=== PATIENT | male | born 1950 | race Caucasian/White ===

== ENCOUNTER 2016-02-21 10:15 | Outpatient (CLI) | payer MEDICARE, OTHER | END 2016-02-21 10:16 | disposition home or self-care (01) | DX: E55.9 Vitamin D deficiency, unspecified (principal); R73.09 Other abnormal glucose; Z79.899 Other long term (current) drug therapy ==

== ENCOUNTER 2016-10-03 08:11 | Outpatient (CLI) | payer MEDICARE, OTHER ==
[2016-10-03 08:48] LABS: ALBUMIN/GLOBULIN RATIO 1.3 (1.0-2.2); BUN - BLOOD UREA NITROGEN 13 mg/dL (6-20); CALCIUM 9.1 mg/dL (8.5-10.3); CARBON DIOXIDE - CO2 23 mmol/L (21-32); CHLORIDE 108 mmol/L (101-111); CHOL/HDL RATIO 4.4 (<5.0); CHOLESTEROL 160 mg/dL; GFR - MDRD 74 (>89); GLUCOSE 179 mg/dL (70-100); HDL CHOLESTEROL 36 mg/dL; POTASSIUM 4.2 mmol/L (3.5-5.0); SODIUM 138 mmol/L (135-145); TOTAL PROTEIN 6.9 g/dL (6.7-8.2); TRIGLYCERIDES 256 mg/dL; VLDL CHOLESTEROL 51 mg/dL
[2016-10-03 08:50] LABS: BASOPHILS # (AUTO) 0.1 10^3/uL (0.0-0.1); BASOPHILS % (AUTO) 0.9 %; EOSINOPHILS # (AUTO) 0.1 10^3/uL (0.0-0.7); EOSINOPHILS % (AUTO) 1.7 %; HCT - HEMATOCRIT 42.3 % (42.0-52.0); HGB - HEMOGLOBIN 14.8 g/dL (14.0-18.0); LYMPHOCYTES # (AUTO) 2.5 10^3/uL (1.5-3.5); LYMPHOCYTES % (AUTO) 41.4 %; MEAN CORPUSCULAR HEMOGLOBIN 32.2 pg (27.0-31.0); MEAN CORPUSCULAR HGB CONC 35.1 g/dL (32.0-36.0); MEAN CORPUSCULAR VOLUME 91.8 fL (80.0-94.0); MEAN PLATELET VOLUME 8.4 fL (7.4-11.4); MONOCYTES # (AUTO) 0.4 10^3/uL (0.0-1.0); MONOCYTES % (AUTO) 7.2 %; NEUTROPHILS % (AUTO) 48.8 %; NUCLEATED RED BLOOD CELLS AUTO 0.1 /100WBC; RED BLOOD COUNT 4.61 10^6/uL (4.70-6.10); RED CELL DISTRIBUTION WIDTH 12.9 % (12.0-15.0); UNCORRECTED WHITE BLOOD COUNT 6.1 x10^3/uL; WHITE BLOOD COUNT 6.1 x10^3/uL (4.8-10.8)
[2016-10-03 08:58] LABS: HEMOGLOBIN A1C 1.03 g/dL
== END 2016-10-03 08:12 | disposition home or self-care (01) ==
LOC: LAB 08:11
PROVIDERS: ATTEND Internal Medicine
DX: E55.9 Vitamin D deficiency, unspecified (principal); E88.81 Metabolic syndrome and other insulin resistance; E78.5 Hyperlipidemia, unspecified; Z79.899 Other long term (current) drug therapy
CPT/HCPCS: 36415; 80053; 80061; 82306; 83036; 85025

== ENCOUNTER 2016-12-18 09:37 | Outpatient (CLI) | payer MEDICARE, OTHER ==
[2016-12-18 10:35] LABS: HEMOGLOBIN A1C 0.82 g/dL
== END 2016-12-18 09:38 | disposition home or self-care (01) ==
LOC: LAB 09:37
PROVIDERS: ATTEND Internal Medicine
DX: E11.9 Type 2 diabetes mellitus without complications (principal)
CPT/HCPCS: 36415; 83036

== ENCOUNTER 2017-01-22 09:44 | Outpatient (CLI) | payer MEDICARE, OTHER | END 2017-01-22 09:45 | disposition home or self-care (01) | LOC: SC 09:44 | PROVIDERS: ATTEND Nurse Practitioner Family | DX: G47.33 Obstructive sleep apnea (adult) (pediatric) (principal); G47.00 Insomnia, unspecified | CPT/HCPCS: 99214; G0463; 99212 ==

== ENCOUNTER 2017-03-24 10:12 | Outpatient (CLI) | payer MEDICARE, OTHER | END 2017-03-24 10:13 | disposition home or self-care (01) | LOC: SC 10:12 | PROVIDERS: ATTEND Nurse Practitioner Family | DX: G47.33 Obstructive sleep apnea (adult) (pediatric) (principal) | CPT/HCPCS: 99214; G0463; 99212 ==

== ENCOUNTER 2017-04-02 10:12 | Outpatient (CLI) | payer MEDICARE, OTHER ==
[2017-04-02 11:10] LABS: HB2 TOTAL 16.3 g/dL; HEMOGLOBIN A1C 0.91 g/dL; HEMOGLOBIN A1C % 7.3 % (4.6-6.2)
== END 2017-04-02 10:13 | disposition home or self-care (01) ==
LOC: LAB 10:12
PROVIDERS: ATTEND Internal Medicine
DX: E11.9 Type 2 diabetes mellitus without complications (principal)
CPT/HCPCS: 36415; 83036

== ENCOUNTER 2017-04-20 08:55 | Outpatient (CLI) | payer MEDICARE, OTHER | END 2017-04-20 08:56 | disposition home or self-care (01) | LOC: SC 08:55 | PROVIDERS: ATTEND Nurse Practitioner Family | DX: G47.33 Obstructive sleep apnea (adult) (pediatric) (principal) | CPT/HCPCS: 99214; G0463; 99212 ==

== ENCOUNTER 2017-11-10 07:47 | Outpatient (CLI) | payer MEDICARE, OTHER ==
[2017-11-10 08:29] LABS: BASOPHILS % (AUTO) 0.8 %; EOSINOPHILS # (AUTO) 0.2 10^3/uL (0.0-0.7); EOSINOPHILS % (AUTO) 2.7 %; HGB - HEMOGLOBIN 15.2 g/dL (14.0-18.0); LYMPHOCYTES # (AUTO) 2.6 10^3/uL (1.5-3.5); LYMPHOCYTES % (AUTO) 41.5 %; MEAN CORPUSCULAR HEMOGLOBIN 32.9 pg (27.0-31.0); MEAN CORPUSCULAR HGB CONC 35.1 g/dL (32.0-36.0); MEAN CORPUSCULAR VOLUME 93.8 fL (80.0-94.0); MEAN PLATELET VOLUME 8.3 fL (7.4-11.4); MONOCYTES # (AUTO) 0.5 10^3/uL (0.0-1.0); MONOCYTES % (AUTO) 7.4 %; NEUTROPHILS % (AUTO) 47.6 %; PLT - PLATELET COUNT 180 10^3/uL (130-450); RED BLOOD COUNT 4.62 10^6/uL (4.70-6.10); RED CELL DISTRIBUTION WIDTH 12.7 % (12.0-15.0); WHITE BLOOD COUNT 6.3 x10^3/uL (4.8-10.8)
[2017-11-10 08:31] LABS: ALBUMIN/GLOBULIN RATIO 1.3 (1.0-2.2); ALKALINE PHOSPHATASE 75 IU/L (42-121); ALT ALANINE AMINOTRANSFERASE 33 IU/L (10-60); AST ASPARTATE AMINOTRANSFERASE 26 IU/L (10-42); BILIRUBIN,TOTAL 0.9 mg/dL (0.2-1.0); BUN - BLOOD UREA NITROGEN 14 mg/dL (6-20); CALCIUM 9.4 mg/dL (8.5-10.3); CARBON DIOXIDE - CO2 24 mmol/L (21-32); CHLORIDE 105 mmol/L (101-111); CHOL/HDL RATIO 4.2 (<5.0); CHOLESTEROL 146 mg/dL; CREATININE 0.9 mg/dL (0.6-1.2); GFR - MDRD 84 (>89); GLUCOSE 172 mg/dL (70-100); HDL CHOLESTEROL 35 mg/dL; LDL CHOLESTEROL,CALCULATED 66 mg/dL; LDL/HDL RATIO 1.9 (<3.6); SODIUM 139 mmol/L (135-145); TOTAL PROTEIN 7.2 g/dL (6.7-8.2); VLDL CHOLESTEROL 45 mg/dL
[2017-11-10 09:03] LABS: HB2 TOTAL 17.3 g/dL; HEMOGLOBIN A1C 1.1 g/dL
== END 2017-11-10 07:48 | disposition home or self-care (01) ==
LOC: LAB 07:47
PROVIDERS: ATTEND Internal Medicine
DX: E11.9 Type 2 diabetes mellitus without complications (principal); G47.62 Sleep related leg cramps; Z12.5 Encounter for screening for malignant neoplasm of prostate; E55.9 Vitamin D deficiency, unspecified; E78.5 Hyperlipidemia, unspecified; K30 Functional dyspepsia
CPT/HCPCS: 36415; 80053; 80061; 82306; 83036; 84443; 85025; G0103; 83721; 84153

== ENCOUNTER 2017-12-16 15:53 | Outpatient (CLI) | payer MEDICARE, OTHER | END 2017-12-16 15:54 | disposition home or self-care (01) | LOC: SC 15:53 | PROVIDERS: ATTEND Nurse Practitioner Family | DX: G47.33 Obstructive sleep apnea (adult) (pediatric) (principal) | CPT/HCPCS: 99214; G0463; 99212 ==

== ENCOUNTER 2018-02-22 08:19 | Outpatient (CLI) | payer MEDICARE, OTHER | END 2018-02-22 08:20 | disposition home or self-care (01) | LOC: SC 08:19 | PROVIDERS: ATTEND Nurse Practitioner Family | DX: G47.33 Obstructive sleep apnea (adult) (pediatric) (principal) | CPT/HCPCS: 99214; G0463; 99212 ==

== ENCOUNTER 2018-03-03 08:23 | Outpatient (CLI) | payer MEDICARE, OTHER ==
[2018-03-03 09:49] LABS: HEMOGLOBIN A1C 0.81 g/dL; HEMOGLOBIN A1C % 6.5 % (4.6-6.2)
== END 2018-03-03 08:24 | disposition home or self-care (01) ==
LOC: LAB 08:23
PROVIDERS: ATTEND Internal Medicine
DX: E11.9 Type 2 diabetes mellitus without complications (principal)
CPT/HCPCS: 36415; 83036

== ENCOUNTER 2018-09-29 10:55 | Outpatient (CLI) | payer MEDICARE, OTHER ==
[2018-09-29 11:26] LABS: BUN - BLOOD UREA NITROGEN 15 mg/dL (6-20); CALCIUM 8.9 mg/dL (8.5-10.3); CARBON DIOXIDE - CO2 21 mmol/L (21-32); CHLORIDE 103 mmol/L (101-111); CHOL/HDL RATIO 4.4 (<5.0); CHOLESTEROL 148 mg/dL; GFR - MDRD 74 (>89); GLUCOSE 191 mg/dL (70-100); HDL CHOLESTEROL 34 mg/dL; LDL CHOLESTEROL,CALCULATED 66 mg/dL; LDL/HDL RATIO 1.9 (<3.6); SODIUM 136 mmol/L (135-145); VLDL CHOLESTEROL 48 mg/dL
[2018-09-29 11:30] LABS: HB2 TOTAL 16.4 g/dL; HEMOGLOBIN A1C 1.06 g/dL; HEMOGLOBIN A1C % 8.1 % (4.6-6.2)
== END 2018-09-29 10:56 | disposition home or self-care (01) ==
LOC: LAB 10:55
PROVIDERS: ATTEND Family Medicine
DX: E11.9 Type 2 diabetes mellitus without complications (principal); E66.9 Obesity, unspecified; E55.9 Vitamin D deficiency, unspecified
CPT/HCPCS: 36415; 80048; 80061; 82306; 83036; 83721

== ENCOUNTER 2018-12-31 09:24 | Outpatient (CLI) | payer MEDICARE, OTHER ==
[2018-12-31 10:23] LABS: CALCIUM 9.3 mg/dL (8.5-10.3); CREATININE 0.9 mg/dL (0.6-1.2)
[2018-12-31 10:51] LABS: HB2 TOTAL 15.2 g/dL; HEMOGLOBIN A1C 1.05 g/dL; HEMOGLOBIN A1C % 8.5 % (4.6-6.2)
== END 2018-12-31 09:25 | disposition home or self-care (01) ==
LOC: LAB 09:24
PROVIDERS: ATTEND Family Medicine
DX: G47.30 Sleep apnea, unspecified (principal); E11.9 Type 2 diabetes mellitus without complications; E66.9 Obesity, unspecified; E55.9 Vitamin D deficiency, unspecified
CPT/HCPCS: 36415; 80048; 82306; 83036

== ENCOUNTER 2019-02-28 10:20 | Outpatient (CLI) | payer MEDICARE, OTHER ==
[2019-02-28 11:10] VITALS: BP 134/80
--- NOTE | 2019-02-28 11:10 | SLEEP CARE CONSULTATION ---
Information from patient questionnaire entered by Sheryl Collins. I have reviewed and concur with the information entered by Sheryl Collins. This document represents the service I personally performed and the decisions made by me, Lisa Granados, RN, MSN, [employer]. History of Present Illness Previous diagnosis: Severe, Obstructive Sleep Apnea-Hypopnea Syndrome AHI: 30.1 Reason for follow up: annual (last seen 2019) Equipment type: CPAP Equipment obtained from: [facility] (having difficulty getting supplies until 3 weeks ago and considering transferring) Mask style: Nasal pillows Mask brand: Resmed Backup mask available: Yes Last cushion change: a month HPI additional information: Sleep has been less disrupted since start of time release melatonin 3mg. CPAP Compliance Data - Data Reviewed with Patient Average duration of nightly device use: 7.7 Compliance rate %: 81.1 (180 days ) Current pressure setting (cmH2O): 9-12 Humidity settin Heated hose settin Average residual AHI: 3.9 Average large leak: 2 min 54 sec Subjective Patient concerns: reports: nasal congestion (last several months, nagging morning headache same amount of time), dry mouth, nose, throat (wakes with reservoir empty). denies: aerophagia Initial [place] Sleepiness Scale score: 4 Current [place] Sleepiness Scale score: 6 Physical Exam Blood Pressure: 134/80 Cuff size: long Heart Rate: 67 O2 Saturation: 98 Height: 6 ft 2 in Weight: 308 lb 3.2 oz Weight change since last visit: LOST 3 POUNDS Body Mass Index: 39.5 BMI Classification: Obesity Class 2 Impression and Plan 1. Obstructive Sleep Apnea-Hypopnea Syndrome, moderat to severe on HST in 2018 , with good treatment compliance and good apnea control. On CPAP therapy, the patient has better sleep quality and is more rested overall. His sleep disruption has been reduced with use of melatonin. To furhter improve sleep at night, I explained the importance of not napping and having regular exercise daily. The amount of exercise to be guided by his PCP. Patient has had a nagging mild headache in morning the last few months and that same time he has had the nasal congestion. He is advised to follow up with his PCP for further evaluation. Until then to reduce nasal congestion , I advised increasing the CPAP humidity as shown on sample device and reducing heated hose. This will also allow more moisture delivery. The lower heated hose may also allow water to last longer. If further problems with running out of water, he can have the humidifier checked for malfunction. Printed instructions given how to change settings and why. The heated hose can be adjusted higher if condensation with higher humidity setting. Saline nasal spray sample was also given to use prior to CPAP to clear nasal secretions and wash off any nasal allergens to facilitate nasal breathing. In addition, a steamy shower before bed will often assist nasal drainage. For patient supply concerns. Patient was notified that another DME can be used. I will have my borough coordinator inform of DME options. A [facility] prescription will then be made if patient chooses to transfer. He will consider. Patient advised to contact this office if further supply problems. Patient's apnea severity and rationale for treatment to reduce apnea, improve sleep quality and reduce cardiovascular and cerebrovascular events was reviewed. I also reviewed the benefit of consistent device use of CPAP for diabetes. I reviewed his current BMI of obesity and health risks associated with obesity. He was reminded of the importance of weight loss to reduce his apnea risk , CPAP pressure and benefit to his diabetes. He is to consider to lose weight and discuss with PCP. Keeping physically active will reduce some of health risks of obesity. * Continue CPAP pressure at 9-12 cmH2O * Implement methods to reduce nasal congestion. * Follow up with PCP re headache, nasal congestion, weight loss and activity guidelines. * Notify me if snoring with mask or feeling that the pressure is too much or too little * Attempt to lose weight * Call this office if any problems using CPAP * Return for follow up in 1 year , or sooner if concerns arise Time Spent with Patient (minutes): 35 I spent 100% of this visit face to face with the patient with greater than 50% of this was spent time counseling the patient and coordination of care.
== END 2019-02-28 10:21 | disposition home or self-care (01) ==
LOC: SC 10:20
PROVIDERS: ATTEND Nurse Practitioner Family
DX: G47.33 Obstructive sleep apnea (adult) (pediatric) (principal); E66.9 Obesity, unspecified; Z68.39 Body mass index [BMI] 39.0-39.9, adult
CPT/HCPCS: 99214; G0463; 99212

== ENCOUNTER 2019-07-05 08:29 | Outpatient (CLI) | payer MEDICARE, OTHER ==
[2019-07-05 08:54] LABS: BASOPHILS % (AUTO) 0.3 %; EOSINOPHILS # (AUTO) 0.1 10^3/uL (0.0-0.7); EOSINOPHILS % (AUTO) 1.7 %; HGB - HEMOGLOBIN 15.2 g/dL (14.0-18.0); LYMPHOCYTES # (AUTO) 2.3 10^3/uL (1.5-3.5); LYMPHOCYTES % (AUTO) 39.6 %; MEAN CORPUSCULAR HEMOGLOBIN 33.4 pg (27.0-31.0); MEAN CORPUSCULAR HGB CONC 34.9 g/dL (32.0-36.0); MEAN CORPUSCULAR VOLUME 95.6 fL (80.0-94.0); MONOCYTES # (AUTO) 0.5 10^3/uL (0.0-1.0); MONOCYTES % (AUTO) 8.4 %; NEUTROPHILS # (AUTO) 2.8 10^3/uL (1.5-6.6); NEUTROPHILS % (AUTO) 49.7 %; PLT - PLATELET COUNT 162 10^3/uL (130-450); RED BLOOD COUNT 4.55 10^6/uL (4.70-6.10); RED CELL DISTRIBUTION WIDTH 12.3 % (12.0-15.0); WHITE BLOOD COUNT 5.7 x10^3/uL (4.8-10.8)
[2019-07-05 09:12] LABS: ALBUMIN 3.9 g/dL (3.2-5.5); ALBUMIN/GLOBULIN RATIO 1.3 (1.0-2.2); ALKALINE PHOSPHATASE 77 IU/L (42-121); ALT ALANINE AMINOTRANSFERASE 54 IU/L (10-60); AST ASPARTATE AMINOTRANSFERASE 37 IU/L (10-42); BILIRUBIN,TOTAL 0.6 mg/dL (0.2-1.0); BUN - BLOOD UREA NITROGEN 17 mg/dL (6-20); CARBON DIOXIDE - CO2 19 mmol/L (21-32); CHLORIDE 106 mmol/L (101-111); CHOL/HDL RATIO 3.7 (<5.0); CHOLESTEROL 139 mg/dL; GLUCOSE 180 mg/dL (70-100); HDL CHOLESTEROL 38 mg/dL; LDL CHOLESTEROL,CALCULATED 44 mg/dL; LDL/HDL RATIO 1.2 (<3.6); SODIUM 137 mmol/L (135-145); VLDL CHOLESTEROL 57 mg/dL
== END 2019-07-05 08:30 | disposition home or self-care (01) ==
LOC: LAB 08:29
PROVIDERS: ATTEND Family Medicine
DX: E11.65 Type 2 diabetes mellitus with hyperglycemia (principal); G47.30 Sleep apnea, unspecified; K21.9 Gastro-esophageal reflux disease without esophagitis; E55.9 Vitamin D deficiency, unspecified; E78.5 Hyperlipidemia, unspecified; G47.33 Obstructive sleep apnea (adult) (pediatric)
CPT/HCPCS: 36415; 80053; 80061; 82306; 83721; 84153; 84443; 85025

== ENCOUNTER 2019-07-08 11:11 | Outpatient (CLI) | payer MEDICARE, OTHER ==
[2019-07-08 11:47] LABS: HB2 TOTAL 15.3 g/dL; HEMOGLOBIN A1C 0.84 g/dL; HEMOGLOBIN A1C % 7.2 % (4.6-6.2)
== END 2019-07-08 11:12 | disposition home or self-care (01) ==
LOC: LAB 11:11
PROVIDERS: ATTEND Family Medicine
DX: E11.65 Type 2 diabetes mellitus with hyperglycemia (principal)
CPT/HCPCS: 36415; 83036

== ENCOUNTER 2019-11-17 10:56 | Outpatient (CLI) | payer MEDICARE, OTHER | END 2019-11-17 10:57 | disposition home or self-care (01) | LOC: LAB 10:56 | PROVIDERS: ATTEND Family Medicine | DX: M46.96 Unspecified inflammatory spondylopathy, lumbar region (principal); G62.9 Polyneuropathy, unspecified | CPT/HCPCS: 36415; 80048 ==

== ENCOUNTER 2019-12-23 07:46 | Day surgery (SDC) | payer MEDICARE, OTHER ==
[2019-12-23] MEDS ORDERED: MIDAZOLAM 2 MG/2 ML VIAL IVP ONE (07:47)
[2019-12-23] MEDS ORDERED: fentaNYL 250 MCG/5 ML VIAL IVP ONE (07:47)
[2019-12-23] MEDS ORDERED: LACTATED RINGERS 1,000 ML IV ONE ×2 (08:22→08:58)
[2019-12-23] MEDS ORDERED: LIDO GARGLE 30 ML BOTTLE ONE (08:25)
[2019-12-23] MEDS ORDERED: BENZOCAINE/TETRACAINE/BUTAMBEN 20 GM TOP ONE (08:49)
[2019-12-23] MEDS ORDERED: LIDO GARGLE 30 ML BOTTLE PO ONE (08:49)
[2019-12-23 09:17] VITALS: BP 138/91
== END 2019-12-23 07:47 | disposition home or self-care (01) ==
LOC: SDS 07:46
PROVIDERS: ATTEND Surgery
PROC: 0DB38ZX Excision of Lower Esophagus, Via Natural or Artificial Opening Endoscopic, Diagnostic (ICD-10-PCS; 2019-12-23)
PROC: 0DB48ZX Excision of Esophagogastric Junction, Via Natural or Artificial Opening Endoscopic, Diagnostic (ICD-10-PCS; principal; 2019-12-23 08:45)
DX: K21.9 Gastro-esophageal reflux disease without esophagitis (principal); K22.9 Disease of esophagus, unspecified; E66.9 Obesity, unspecified; Z68.39 Body mass index [BMI] 39.0-39.9, adult; E11.9 Type 2 diabetes mellitus without complications; G47.33 Obstructive sleep apnea (adult) (pediatric); Z79.84 Long term (current) use of oral hypoglycemic drugs; Z87.891 Personal history of nicotine dependence
CPT/HCPCS: 43239; A9270; J3010; J7120

== ENCOUNTER 2020-03-07 17:05 | Outpatient (CLI) | payer MEDICARE, OTHER ==
[2020-03-07 18:07] LABS: FOLATE 22.24 ng/mL (5.90 - >24.8)
[2020-03-07 18:31] LABS: HEMOGLOBIN A1c% 8.6 % (4.27-6.07)
[2020-03-07 18:36] LABS: CREATININE,URINE 110.1 mg/dL; MICROALBUM/CREATININE RATIO,UR 4.5 ug/mg (<30.0); MICROALBUMIN,URINE 0.5 mg/dL (0-300.0)
== END 2020-03-07 17:06 | disposition home or self-care (01) ==
LOC: LAB 17:05
PROVIDERS: ATTEND Family Medicine
DX: E11.9 Type 2 diabetes mellitus without complications (principal); Z51.81 Encounter for therapeutic drug level monitoring
CPT/HCPCS: 82043; 82570; 82607; 82746; 83036

== ENCOUNTER 2020-03-29 08:25 | Outpatient (CLI) | payer MEDICARE, OTHER ==
[2020-03-29 09:08] LABS: THYROID STIMULATING HORMONE 2.52 uIU/mL (0.34-5.60)
[2020-03-29 09:10] LABS: FREE T3 2.82 pg/mL (2.5-3.9)
[2020-03-29 09:11] LABS: FREE T4 (FREE THYROXINE) 0.83 ng/dL (0.58-1.64)
== END 2020-03-29 08:26 | disposition home or self-care (01) ==
LOC: LAB 08:25
PROVIDERS: ATTEND Family Medicine
DX: E55.9 Vitamin D deficiency, unspecified (principal); K59.00 Constipation, unspecified
CPT/HCPCS: 36415; 82306; 84439; 84443; 84481

== ENCOUNTER 2020-06-27 08:57 | Outpatient (CLI) | payer MEDICARE, OTHER ==
[2020-06-27 09:34] LABS: BASOPHILS % (AUTO) 0.5 %; EOSINOPHILS # (AUTO) 0.2 10^3/uL (0.0-0.7); EOSINOPHILS % (AUTO) 3.5 %; HCT - HEMATOCRIT 47.4 % (42.0-52.0); HGB - HEMOGLOBIN 16.1 g/dL (14.0-18.0); LYMPHOCYTES # (AUTO) 2.3 10^3/uL (1.5-3.5); LYMPHOCYTES % (AUTO) 38.4 %; MEAN CORPUSCULAR HEMOGLOBIN 32.9 pg (27.0-31.0); MEAN CORPUSCULAR VOLUME 96.7 fL (80.0-94.0); MEAN PLATELET VOLUME 9.6 fL (7.4-11.4); MONOCYTES # (AUTO) 0.5 10^3/uL (0.0-1.0); MONOCYTES % (AUTO) 7.6 %; NEUTROPHILS # (AUTO) 2.9 10^3/uL (1.5-6.6); NEUTROPHILS % (AUTO) 49.7 %; PLT - PLATELET COUNT 158 10^3/uL (130-450); RED CELL DISTRIBUTION WIDTH 12.5 % (12.0-15.0); WHITE BLOOD COUNT 5.9 x10^3/uL (4.8-10.8)
[2020-06-27 09:46] LABS: ALBUMIN 4.3 g/dL (3.2-5.5); ALBUMIN/GLOBULIN RATIO 1.3 (1.0-2.2); ALKALINE PHOSPHATASE 76 IU/L (42-121); ALT ALANINE AMINOTRANSFERASE 38 IU/L (10-60); AST ASPARTATE AMINOTRANSFERASE 34 IU/L (10-42); BILIRUBIN,TOTAL 0.9 mg/dL (0.2-1.0); BUN - BLOOD UREA NITROGEN 20 mg/dL (6-20); CALCIUM 9.3 mg/dL (8.5-10.3); CARBON DIOXIDE - CO2 24 mmol/L (21-32); CHLORIDE 104 mmol/L (101-111); CHOL/HDL RATIO 3.4 (<5.0); CHOLESTEROL 143 mg/dL; GFR - MDRD 74 (>89); GLUCOSE 173 mg/dL (70-100); HDL CHOLESTEROL 42 mg/dL; LDL CHOLESTEROL,CALCULATED 36 mg/dL; LDL/HDL RATIO 0.9 (<3.6); POTASSIUM 4.2 mmol/L (3.5-5.0); SODIUM 138 mmol/L (135-145); TOTAL PROTEIN 7.5 g/dL (6.7-8.2); TRIGLYCERIDES 326 mg/dL; VLDL CHOLESTEROL 65 mg/dL
[2020-06-27 14:05] LABS: ESTIMATED AVERAGE GLUCOSE 146 mg/dL (70-100); HEMOGLOBIN A1c% 6.7 % (4.27-6.07)
== END 2020-06-27 08:58 | disposition home or self-care (01) ==
LOC: LAB 08:57
PROVIDERS: ATTEND Family Medicine
DX: G62.89 Other specified polyneuropathies (principal); E78.5 Hyperlipidemia, unspecified; K22.9 Disease of esophagus, unspecified; E11.65 Type 2 diabetes mellitus with hyperglycemia; K21.9 Gastro-esophageal reflux disease without esophagitis; E55.9 Vitamin D deficiency, unspecified; E66.9 Obesity, unspecified
CPT/HCPCS: 36415; 80053; 80061; 82306; 83036; 83721; 84153; 85025

== ENCOUNTER 2020-09-27 08:04 | Outpatient (CLI) | payer MEDICARE, OTHER ==
[2020-09-27 08:41] LABS: BUN - BLOOD UREA NITROGEN 19 mg/dL (6-20); CALCIUM 9.1 mg/dL (8.5-10.3); CARBON DIOXIDE - CO2 22 mmol/L (21-32); CHLORIDE 106 mmol/L (101-111); CHOL/HDL RATIO 3.9 (<5.0); CHOLESTEROL 151 mg/dL; CREATININE 0.8 mg/dL (0.6-1.2); GFR - MDRD 95 (>89); GLUCOSE 174 mg/dL (70-100); HDL CHOLESTEROL 39 mg/dL; LDL CHOLESTEROL,CALCULATED 54 mg/dL; LDL/HDL RATIO 1.4 (<3.6); POTASSIUM 4.3 mmol/L (3.5-5.0); SODIUM 139 mmol/L (135-145); TRIGLYCERIDES 290 mg/dL; VLDL CHOLESTEROL 58 mg/dL
[2020-09-27 11:24] LABS: ESTIMATED AVERAGE GLUCOSE 154 mg/dL (70-100)
== END 2020-09-27 08:05 | disposition home or self-care (01) ==
LOC: LAB 08:04
PROVIDERS: ATTEND Family Medicine
DX: E11.9 Type 2 diabetes mellitus without complications (principal); E66.9 Obesity, unspecified; E78.5 Hyperlipidemia, unspecified; G60.8 Other hereditary and idiopathic neuropathies
CPT/HCPCS: 36415; 80048; 80061; 83036; 83721

== ENCOUNTER 2021-01-07 07:55 | Outpatient (CLI) | payer MEDICARE, OTHER ==
[2021-01-07 08:26] LABS: CALCIUM 9.1 mg/dL (8.5-10.3); CREATININE 0.9 mg/dL (0.6-1.2)
[2021-01-07 10:32] LABS: CREATININE,URINE 61.3 mg/dL; MICROALBUM/CREATININE RATIO,UR 13.1 ug/mg (<30.0); MICROALBUMIN,URINE 0.8 mg/dL (0-300.0)
[2021-01-07 10:50] LABS: ESTIMATED AVERAGE GLUCOSE 166 mg/dL (70-100); HEMOGLOBIN A1c% 7.4 % (4.27-6.07)
== END 2021-01-07 07:56 | disposition home or self-care (01) ==
LOC: LAB 07:55
PROVIDERS: ATTEND Family Medicine
DX: Z00.00 Encounter for general adult medical examination without abnormal findings (principal); E11.65 Type 2 diabetes mellitus with hyperglycemia
CPT/HCPCS: 36415; 80048; 82043; 82570; 82607; 82746; 83036

== ENCOUNTER 2021-04-04 08:07 | Outpatient (CLI) | payer MEDICARE, OTHER ==
[2021-04-04 08:45] LABS: CALCIUM 9.7 mg/dL (8.5-10.3); POTASSIUM 4.2 mmol/L (3.5-5.0)
[2021-04-04 12:54] LABS: ESTIMATED AVERAGE GLUCOSE 151 mg/dL (70-100); HEMOGLOBIN A1c% 6.9 % (4.27-6.07)
== END 2021-04-04 08:08 | disposition home or self-care (01) ==
LOC: LAB 08:07
PROVIDERS: ATTEND Family Medicine
DX: G64 Other disorders of peripheral nervous system (principal); E11.9 Type 2 diabetes mellitus without complications; E55.9 Vitamin D deficiency, unspecified; E66.9 Obesity, unspecified
CPT/HCPCS: 36415; 80048; 82306; 83036

== ENCOUNTER 2021-07-05 09:17 | Outpatient (CLI) | payer MEDICARE, OTHER ==
[2021-07-05 09:44] LABS: BASOPHILS % (AUTO) 0.5 %; EOSINOPHILS # (AUTO) 0.2 10^3/uL (0.0-0.7); EOSINOPHILS % (AUTO) 3.1 %; HCT - HEMATOCRIT 46.7 % (42.0-52.0); LYMPHOCYTES # (AUTO) 2.3 10^3/uL (1.5-3.5); LYMPHOCYTES % (AUTO) 39.2 %; MEAN CORPUSCULAR HEMOGLOBIN 32.7 pg (27.0-31.0); MEAN CORPUSCULAR HGB CONC 34.3 g/dL (32.0-36.0); MEAN CORPUSCULAR VOLUME 95.5 fL (80.0-94.0); MEAN PLATELET VOLUME 9.6 fL (7.4-11.4); MONOCYTES # (AUTO) 0.5 10^3/uL (0.0-1.0); NEUTROPHILS # (AUTO) 2.8 10^3/uL (1.5-6.6); PLT - PLATELET COUNT 176 10^3/uL (130-450); RED BLOOD COUNT 4.89 10^6/uL (4.70-6.10); RED CELL DISTRIBUTION WIDTH 12.1 % (12.0-15.0); WHITE BLOOD COUNT 5.8 x10^3/uL (4.8-10.8)
[2021-07-05 10:10] LABS: ALBUMIN 4.4 g/dL (3.2-5.5); ALBUMIN/GLOBULIN RATIO 1.5 (1.0-2.2); ALKALINE PHOSPHATASE 61 IU/L (42-121); ALT ALANINE AMINOTRANSFERASE 34 IU/L (10-60); AST ASPARTATE AMINOTRANSFERASE 25 IU/L (10-42); BILIRUBIN,TOTAL 0.9 mg/dL (0.2-1.0); BUN - BLOOD UREA NITROGEN 18 mg/dL (6-20); CALCIUM 9.2 mg/dL (8.5-10.3); CARBON DIOXIDE - CO2 23 mmol/L (21-32); CHLORIDE 104 mmol/L (101-111); CHOL/HDL RATIO 2.9 (<5.0); CHOLESTEROL 122 mg/dL; GFR - MDRD 73 (>89); GLUCOSE 153 mg/dL (70-100); HDL CHOLESTEROL 42 mg/dL; LDL CHOLESTEROL,CALCULATED 55 mg/dL; LDL/HDL RATIO 1.3 (<3.6); POTASSIUM 4.2 mmol/L (3.5-5.0); SODIUM 139 mmol/L (135-145); TOTAL PROTEIN 7.4 g/dL (6.7-8.2); TRIGLYCERIDES 126 mg/dL; VLDL CHOLESTEROL 25 mg/dL
[2021-07-05 10:21] LABS: THYROID STIMULATING HORMONE 2.12 uIU/mL (0.34-5.60)
[2021-07-05 12:03] LABS: ESTIMATED AVERAGE GLUCOSE 154 mg/dL (70-100)
== END 2021-07-05 09:18 | disposition home or self-care (01) ==
LOC: LAB 09:17
PROVIDERS: ATTEND Family Medicine
DX: M79.10 Myalgia, unspecified site (principal); M46.96 Unspecified inflammatory spondylopathy, lumbar region; G47.62 Sleep related leg cramps; E66.9 Obesity, unspecified; E78.5 Hyperlipidemia, unspecified; E11.65 Type 2 diabetes mellitus with hyperglycemia; G62.9 Polyneuropathy, unspecified
CPT/HCPCS: 36415; 80053; 80061; 82043; 82570; 83036; 83721; 84443; 85025

== ENCOUNTER 2021-10-09 08:02 | Outpatient (CLI) | payer MEDICARE, OTHER ==
[2021-10-09 08:20] LABS: BASOPHILS % (AUTO) 0.6 %; EOSINOPHILS # (AUTO) 0.2 10^3/uL (0.0-0.7); EOSINOPHILS % (AUTO) 2.6 %; HCT - HEMATOCRIT 45.2 % (42.0-52.0); HGB - HEMOGLOBIN 15.7 g/dL (14.0-18.0); LYMPHOCYTES # (AUTO) 2.5 10^3/uL (1.5-3.5); LYMPHOCYTES % (AUTO) 36.2 %; MEAN CORPUSCULAR HEMOGLOBIN 33.5 pg (27.0-31.0); MEAN CORPUSCULAR HGB CONC 34.7 g/dL (32.0-36.0); MEAN CORPUSCULAR VOLUME 96.6 fL (80.0-94.0); MEAN PLATELET VOLUME 9.8 fL (7.4-11.4); MONOCYTES # (AUTO) 0.5 10^3/uL (0.0-1.0); MONOCYTES % (AUTO) 7.1 %; NEUTROPHILS # (AUTO) 3.7 10^3/uL (1.5-6.6); NEUTROPHILS % (AUTO) 53.2 %; PLT - PLATELET COUNT 158 10^3/uL (130-450); RED BLOOD COUNT 4.68 10^6/uL (4.70-6.10); RED CELL DISTRIBUTION WIDTH 12.4 % (12.0-15.0); WHITE BLOOD COUNT 6.9 x10^3/uL (4.8-10.8)
[2021-10-09 08:35] LABS: CREATININE,URINE 55.4 mg/dL; MICROALBUM/CREATININE RATIO,UR 16.2 ug/mg (<30.0); MICROALBUMIN,URINE 0.9 mg/dL (0-300.0)
[2021-10-09 08:39] LABS: ALBUMIN 4.2 g/dL (3.2-5.5); ALBUMIN/GLOBULIN RATIO 1.5 (1.0-2.2); ALKALINE PHOSPHATASE 67 IU/L (42-121); ALT ALANINE AMINOTRANSFERASE 34 IU/L (10-60); AST ASPARTATE AMINOTRANSFERASE 28 IU/L (10-42); BILIRUBIN,TOTAL 0.4 mg/dL (0.2-1.0); BUN - BLOOD UREA NITROGEN 19 mg/dL (6-20); CALCIUM 9.6 mg/dL (8.5-10.3); CARBON DIOXIDE - CO2 22 mmol/L (21-32); CHLORIDE 106 mmol/L (101-111); CHOL/HDL RATIO 4.1 (<5.0); CHOLESTEROL 152 mg/dL; CREATININE 0.8 mg/dL (0.6-1.2); GFR - MDRD 95 (>89); GLUCOSE 150 mg/dL (70-100); HDL CHOLESTEROL 37 mg/dL; LDL CHOLESTEROL,CALCULATED 43 mg/dL; LDL/HDL RATIO 1.2 (<3.6); POTASSIUM 4.3 mmol/L (3.5-5.0); SODIUM 137 mmol/L (135-145); TRIGLYCERIDES 360 mg/dL; VLDL CHOLESTEROL 72 mg/dL
[2021-10-09 08:48] LABS: THYROID STIMULATING HORMONE 2.19 uIU/mL (0.34-5.60)
[2021-10-09 08:59] LABS: ESTIMATED AVERAGE GLUCOSE 154 mg/dL (70-100)
== END 2021-10-09 08:03 | disposition home or self-care (01) ==
LOC: LAB 08:02
PROVIDERS: ATTEND Family Medicine
DX: E11.65 Type 2 diabetes mellitus with hyperglycemia (principal); M79.10 Myalgia, unspecified site; G60.8 Other hereditary and idiopathic neuropathies; M47.816 Spondylosis without myelopathy or radiculopathy, lumbar region; G47.62 Sleep related leg cramps; E66.9 Obesity, unspecified; E78.5 Hyperlipidemia, unspecified
CPT/HCPCS: 36415; 36416; 80053; 80061; 82043; 82570; 83036; 83721; 84443; 85025; 85610

== ENCOUNTER 2022-01-13 07:35 | Outpatient (CLI) | payer MEDICARE, OTHER ==
[2022-01-13 08:45] LABS: BASOPHILS % (AUTO) 0.5 %; EOSINOPHILS # (AUTO) 0.1 10^3/uL (0.0-0.7); EOSINOPHILS % (AUTO) 1.8 %; HCT - HEMATOCRIT 45.1 % (42.0-52.0); HGB - HEMOGLOBIN 15.3 g/dL (14.0-18.0); LYMPHOCYTES # (AUTO) 1.2 10^3/uL (1.5-3.5); LYMPHOCYTES % (AUTO) 21.2 %; MEAN CORPUSCULAR HEMOGLOBIN 32.3 pg (27.0-31.0); MEAN CORPUSCULAR HGB CONC 33.9 g/dL (32.0-36.0); MEAN CORPUSCULAR VOLUME 95.3 fL (80.0-94.0); MONOCYTES # (AUTO) 0.5 10^3/uL (0.0-1.0); MONOCYTES % (AUTO) 9.5 %; NEUTROPHILS # (AUTO) 3.7 10^3/uL (1.5-6.6); NEUTROPHILS % (AUTO) 66.8 %; PLT - PLATELET COUNT 145 10^3/uL (130-450); RED BLOOD COUNT 4.73 10^6/uL (4.70-6.10); RED CELL DISTRIBUTION WIDTH 12.1 % (12.0-15.0); WHITE BLOOD COUNT 5.5 x10^3/uL (4.8-10.8)
[2022-01-13 08:47] LABS: CALCIUM, IONIZED 1.17 mmol/L (1.15-1.33); VBG PH 7.418
[2022-01-13 08:59] LABS: ALBUMIN 4.1 g/dL (3.2-5.5); ALBUMIN/GLOBULIN RATIO 1.4 (1.0-2.2); ALKALINE PHOSPHATASE 63 IU/L (42-121); ALT ALANINE AMINOTRANSFERASE 43 IU/L (10-60); AST ASPARTATE AMINOTRANSFERASE 32 IU/L (10-42); BILIRUBIN,TOTAL 0.9 mg/dL (0.2-1.0); BUN - BLOOD UREA NITROGEN 15 mg/dL (6-20); CALCIUM 9.4 mg/dL (8.5-10.3); CARBON DIOXIDE - CO2 22 mmol/L (21-32); CHLORIDE 102 mmol/L (101-111); CHOL/HDL RATIO 4.4 (<5.0); CHOLESTEROL 155 mg/dL; GFR - MDRD 73 (>89); GLUCOSE 186 mg/dL (70-100); HDL CHOLESTEROL 35 mg/dL; SODIUM 136 mmol/L (135-145); TOTAL PROTEIN 7.1 g/dL (6.7-8.2); TRIGLYCERIDES 503 mg/dL
[2022-01-13 09:11] LABS: THYROID STIMULATING HORMONE 1.8 uIU/mL (0.34-5.60)
[2022-01-13 09:59] LABS: LDL CHOLESTEROL,DIRECT 57 mg/dL; LDLD/HDL RATIO 1.6 (<3.6)
[2022-01-13 11:16] LABS: ESTIMATED AVERAGE GLUCOSE 177 mg/dL (70-100); HEMOGLOBIN A1c% 7.8 % (4.27-6.07)
== END 2022-01-13 07:36 | disposition home or self-care (01) ==
LOC: LAB 07:35
PROVIDERS: ATTEND Family Medicine
DX: E11.9 Type 2 diabetes mellitus without complications (principal); E21.3 Hyperparathyroidism, unspecified; H35.342 Macular cyst, hole, or pseudohole, left eye; K21.9 Gastro-esophageal reflux disease without esophagitis; E55.9 Vitamin D deficiency, unspecified; E78.5 Hyperlipidemia, unspecified; Z12.5 Encounter for screening for malignant neoplasm of prostate
CPT/HCPCS: 36415; 80053; 80061; 82306; 82330; 83036; 83721; 84443; 85025; G0103; 84153

== ENCOUNTER 2022-04-09 07:49 | Outpatient (CLI) | payer MEDICARE, OTHER ==
[2022-04-09 08:26] LABS: CALCIUM 9.4 mg/dL (8.5-10.3); CREATININE 0.9 mg/dL (0.6-1.2); POTASSIUM 4.4 mmol/L (3.5-5.0)
[2022-04-09 10:38] LABS: ESTIMATED AVERAGE GLUCOSE 171 mg/dL (70-100); HEMOGLOBIN A1c% 7.6 % (4.27-6.07)
== END 2022-04-09 07:50 | disposition home or self-care (01) ==
LOC: LAB 07:49
PROVIDERS: ATTEND Family Medicine
DX: E21.3 Hyperparathyroidism, unspecified (principal); E11.65 Type 2 diabetes mellitus with hyperglycemia; G47.30 Sleep apnea, unspecified; E55.9 Vitamin D deficiency, unspecified; K21.9 Gastro-esophageal reflux disease without esophagitis
CPT/HCPCS: 36415; 80048; 82306; 83036

== ENCOUNTER 2022-07-21 08:17 | Outpatient (CLI) | payer MEDICARE, OTHER ==
[2022-07-21 08:41] LABS: CALCIUM 8.9 mg/dL (8.5-10.3); POTASSIUM 4.2 mmol/L (3.5-5.0)
[2022-07-21 08:49] LABS: CREATININE,URINE 62.3 mg/dL; MICROALBUM/CREATININE RATIO,UR 25.7 ug/mg (<30.0); MICROALBUMIN,URINE 1.6 mg/dL (0-300.0)
[2022-07-21 12:03] LABS: ESTIMATED AVERAGE GLUCOSE 189 mg/dL (70-100); HEMOGLOBIN A1c% 8.2 % (4.27-6.07)
== END 2022-07-21 08:18 | disposition home or self-care (01) ==
LOC: LAB 08:17
PROVIDERS: ATTEND Family Medicine
DX: E11.65 Type 2 diabetes mellitus with hyperglycemia (principal); E55.9 Vitamin D deficiency, unspecified; E66.9 Obesity, unspecified
CPT/HCPCS: 36415; 80048; 82043; 82570; 83036

== ENCOUNTER 2022-07-30 07:27 | Day surgery (SDC) | payer MEDICARE, OTHER ==
[2022-07-30] MEDS ORDERED: LACTATED RINGERS 1,000 ML IV ONE ×2 (07:31→09:00)
--- NOTE | 2022-07-30 08:23 | ANESTHESIA ---
Pre-Anesthesia VS, & Labs - Diagnosis screening - Procedure colonoscopy Vital Signs: Temp Pulse Resp BP Pulse Ox O2 Flow Rate 36 C L 74 16 138/85 H 96 07/30/22 07:34 07/30/22 07:34 07/30/22 07:34 07/30/22 07:34 07/30/22 07:34 Height: 6 ft 2 in Weight (kg): 134 kg Body Mass Index: 37.9 BMI Classification: Obese - NPO >8 hours - Lab Results Current Lab Results: Laboratory Tests 07/30/22 07:52: POC Whole Bld Glucose 172 H Home Medications and Allergies Home Medications: Ambulatory Orders Empagliflozin [Jardiance] 10 mg PO DAILY 07/29/22 Ezetimibe/Rosuvastatin Calcium [Rosuvastatin-Ezetimibe 10-10Mg] 10 mg PO DAILY 07/30/22 Aspirin 81 mg PO DAILY 10/21/16 Cholecalciferol (Vitamin D3) [Vitamin D] 200,000 unit PO Q7D 10/21/16 Magnesium 2 mg PO DAILY 10/21/16 Metformin HCl 750 mg PO BIDWM 10/21/16 Multivitamin [Multivitamins] 1 each PO DAILY 10/21/16 Glimepiride [Amaryl] 1 mg PO QPM 01/18/18 Gabapentin [Neurontin] 300 mg PO DAILY 12/23/19 Naproxen Sodium [Aleve] 220 mg PO DAILY PM 12/23/19 Empagliflozin [Jardiance] 10 mg PO DAILY 07/29/22 Ezetimibe/Rosuvastatin Calcium [Rosuvastatin-Ezetimibe 10-10Mg] 10 mg PO DAILY 07/30/22 Allergies/Adverse Reactions: Allergies Allergy/AdvReac Type Severity Reaction Status Date / Time ampicillin Allergy Rash Verified 12/23/19 08:23 Anes History & Medical History - Anesthetic History Anesthesia Complications: reports: No previous complications Family history of Anesthesia Complications: Denies Family history of Malignant Hyperthermia: Denies - Medical History Cardiovascular: reports: High cholesterol Pulmonary: reports: Sleep apnea, CPAP use Gastrointestinal: reports: GERD, Hemorrhoids Urinary: reports: None Musculoskeletal: reports: Osteoarthritis, Chronic back pain Endocrine/Autoimmune: reports: Type 2 diabetes Skin: reports: None Smoking Status: Never smoker - Surgical History General: reports: Colonoscopy Exam General: Alert, Oriented x3, Cooperative Dental: WNL Mouth Openin Fingerbreadth Neck Mobility: Normal Mallampati classification: III Respiratory: Lungs clear Cardiovascular: Regular rate Plan Anesthesia Type: General, Total IV Consent for Procedure(s) Verified and Reviewed: Yes Code Status: Attempt Resuscitation ASA classification: 3-Severe systemic disease Is this case an emergency?: No
[2022-07-30] MEDS ORDERED: PROPOFOL 500 MG/50 ML 500 MG/50 ML VIAL ONE (08:31)
[2022-07-30 09:41] VITALS: BP 114/68
--- NOTE | 2022-07-30 14:10 | ANESTHESIA POST OP EVALUATION ---
Anesthesia Post Eval - Post Anesthesia Eval Vitals: Last Vital Signs Temp 36.5 C 07/30/22 09:30 Pulse 65 07/30/22 09:30 Resp 16 07/30/22 09:30 BP 114/68 07/30/22 09:30 Pulse Ox 99 07/30/22 09:30 O2 Flow Rate CV Function Including HR & BP: Stable Pain Control: Satisfactory Nausea & Vomiting: Negative Mental Status: Baseline Respiratory Status: Airway Patent Hydration Status: Satisfactory Anesthesia Complications: None
== END 2022-07-30 07:28 | disposition home or self-care (01) ==
LOC: SDS 07:27
PROVIDERS: ATTEND Surgery
PROC: 0DBN8ZX Excision of Sigmoid Colon, Via Natural or Artificial Opening Endoscopic, Diagnostic (ICD-10-PCS; principal; 2022-07-30 08:40)
DX: Z12.11 Encounter for screening for malignant neoplasm of colon (principal); K63.5 Polyp of colon; K64.1 Second degree hemorrhoids; G47.30 Sleep apnea, unspecified; E66.9 Obesity, unspecified; E11.9 Type 2 diabetes mellitus without complications; Z68.38 Body mass index [BMI] 38.0-38.9, adult; Z79.84 Long term (current) use of oral hypoglycemic drugs; Z87.891 Personal history of nicotine dependence
CPT/HCPCS: 45380; J7120

== ENCOUNTER 2022-12-15 08:05 | Outpatient (CLI) | payer MEDICARE, OTHER ==
[2022-12-15 08:48] LABS: CALCIUM 9.3 mg/dL (8.5-10.3); CREATININE 0.9 mg/dL (0.6-1.3); POTASSIUM 4.2 mmol/L (3.5-4.5)
[2022-12-15 08:50] LABS: CREATININE,URINE 36.2 mg/dL
[2022-12-15 08:51] LABS: MICROALBUMIN,URINE < 0.7 mg/dL
[2022-12-15 10:20] LABS: ESTIMATED AVERAGE GLUCOSE 189 mg/dL (70-100); HEMOGLOBIN A1c% 8.2 % (4.27-6.07)
== END 2022-12-15 08:06 | disposition home or self-care (01) ==
LOC: LAB 08:05
PROVIDERS: ATTEND Family Medicine
DX: E11.65 Type 2 diabetes mellitus with hyperglycemia (principal); G62.9 Polyneuropathy, unspecified; E55.9 Vitamin D deficiency, unspecified
CPT/HCPCS: 36415; 80048; 82043; 82306; 82570; 83036

== ENCOUNTER 2023-04-04 08:13 | Outpatient (CLI) | payer MEDICARE, OTHER ==
[2023-04-04 08:32] LABS: BASOPHILS % (AUTO) 0.6 %; EOSINOPHILS # (AUTO) 0.1 10^3/uL (0.0-0.7); EOSINOPHILS % (AUTO) 2.4 %; HCT - HEMATOCRIT 47.5 % (42.0-52.0); HGB - HEMOGLOBIN 15.7 g/dL (14.0-18.0); LYMPHOCYTES # (AUTO) 1.9 10^3/uL (1.5-3.5); LYMPHOCYTES % (AUTO) 38.8 %; MEAN CORPUSCULAR HEMOGLOBIN 32.1 pg (27.0-31.0); MEAN CORPUSCULAR HGB CONC 33.1 g/dL (32.0-36.0); MEAN CORPUSCULAR VOLUME 97.1 fL (80.0-94.0); MONOCYTES # (AUTO) 0.4 10^3/uL (0.0-1.0); MONOCYTES % (AUTO) 7.1 %; NEUTROPHILS # (AUTO) 2.5 10^3/uL (1.5-6.6); NEUTROPHILS % (AUTO) 50.9 %; PLT - PLATELET COUNT 146 10^3/uL (130-450); RED BLOOD COUNT 4.89 10^6/uL (4.70-6.10); RED CELL DISTRIBUTION WIDTH 12.4 % (12.0-15.0); WHITE BLOOD COUNT 4.9 x10^3/uL (4.8-10.8)
[2023-04-04 08:59] LABS: ALBUMIN 4.2 g/dL (3.2-5.5); ALBUMIN/GLOBULIN RATIO 1.6 (1.0-2.2); ALKALINE PHOSPHATASE 57 IU/L (42-121); ALT ALANINE AMINOTRANSFERASE 24 IU/L (10-60); AST ASPARTATE AMINOTRANSFERASE 21 IU/L (10-42); BILIRUBIN,TOTAL 0.7 mg/dL (0.2-1.0); BUN - BLOOD UREA NITROGEN 18 mg/dL (6-20); CALCIUM 9.5 mg/dL (8.5-10.3); CARBON DIOXIDE - CO2 22 mmol/L (21-32); CHLORIDE 107 mmol/L (101-111); CHOL/HDL RATIO 3.5 (<5.0); CHOLESTEROL 132 mg/dL; GFR - MDRD 73 (>89); GLUCOSE 169 mg/dL (74-104); HDL CHOLESTEROL 38 mg/dL; LDL CHOLESTEROL,CALCULATED 35 mg/dL; LDL/HDL RATIO 0.9 (<3.6); POTASSIUM 4.2 mmol/L (3.5-4.5); SODIUM 138 mmol/L (135-145); TOTAL PROTEIN 6.9 g/dL (6.4-8.9); TRIGLYCERIDES 293 mg/dL (48-352); VLDL CHOLESTEROL 59 mg/dL
[2023-04-04 09:00] LABS: CREATININE,URINE 39.4 mg/dL; TOTAL PROTEIN,URINE TIMED < 4 mg/dL
[2023-04-04 10:16] LABS: ESTIMATED AVERAGE GLUCOSE 163 mg/dL (70-100); HEMOGLOBIN A1c% 7.3 % (4.27-6.07)
== END 2023-04-04 08:14 | disposition home or self-care (01) ==
LOC: LAB 08:13
PROVIDERS: ATTEND Family Medicine
DX: E11.65 Type 2 diabetes mellitus with hyperglycemia (principal); R80.9 Proteinuria, unspecified; R41.3 Other amnesia; E21.3 Hyperparathyroidism, unspecified; G62.89 Other specified polyneuropathies; K22.9 Disease of esophagus, unspecified; G47.30 Sleep apnea, unspecified; E55.9 Vitamin D deficiency, unspecified; E78.5 Hyperlipidemia, unspecified; Z12.5 Encounter for screening for malignant neoplasm of prostate; R41.9 Unspecified symptoms and signs involving cognitive functions and awareness; K21.9 Gastro-esophageal reflux disease without esophagitis
CPT/HCPCS: 36415; 80053; 80061; 82570; 83036; 84156; 84443; 85025; G0103; 83721; 84153

== ENCOUNTER 2023-08-07 11:51 | Outpatient (CLI) | payer MEDICARE, OTHER ==
--- NOTE | 2023-08-08 09:56 | XRAY Report ---
PROCEDURE: Knee 3V RT INDICATIONS: RIGHT KNEE OSTEOARTHRITIS TECHNIQUE: 3 views of the knee(s) were acquired. COMPARISON: None. FINDINGS: Bones: No fractures or dislocations. No suspicious bony lesions. Mild tricompartmental knee joint d egeneration. Soft tissues: Small knee joint effusion. No suspicious soft tissue calcifications or masses. IMPRESSION: 1. No acute bony abnormality. 2. Mild degenerative joint disease. 3. Small knee joint effusion. Reviewed by: Enrique Reid MD on 08/08/2023 9:55 AM PDT Approved by: Enrique Reid MD on 08/08/2023 9:55 AM PDT Station ID: [id number]
== END 2023-08-07 11:52 | disposition home or self-care (01) ==
LOC: DI 11:51
PROVIDERS: ATTEND Physician Assistant
DX: M17.11 Unilateral primary osteoarthritis, right knee (principal); M25.461 Effusion, right knee

== ENCOUNTER 2023-08-27 08:32 | Outpatient (CLI) | payer MEDICARE, OTHER ==
[2023-08-27 08:59] LABS: ALBUMIN 4.4 g/dL (3.2-5.5); ALBUMIN/GLOBULIN RATIO 1.5 (1.0-2.2); BILIRUBIN,TOTAL 0.5 mg/dL (0.2-1.0); CALCIUM 9.9 mg/dL (8.5-10.3); CREATININE 0.9 mg/dL (0.6-1.3); POTASSIUM 4.2 mmol/L (3.5-4.5); TOTAL PROTEIN 7.3 g/dL (6.4-8.9)
[2023-08-27 11:21] LABS: ESTIMATED AVERAGE GLUCOSE 177 mg/dL (70-100); HEMOGLOBIN A1c% 7.8 % (4.27-6.07)
== END 2023-08-27 08:33 | disposition home or self-care (01) ==
LOC: LAB 08:32
PROVIDERS: ATTEND Family Medicine
DX: E21.3 Hyperparathyroidism, unspecified (principal); G64 Other disorders of peripheral nervous system; E11.65 Type 2 diabetes mellitus with hyperglycemia; G47.30 Sleep apnea, unspecified; K21.9 Gastro-esophageal reflux disease without esophagitis; E55.9 Vitamin D deficiency, unspecified
CPT/HCPCS: 36415; 80053; 82306; 83036

== ENCOUNTER 2023-09-01 13:26 | Outpatient (CLI) | payer MEDICARE, OTHER ==
--- NOTE | 2023-09-01 15:10 | XRAY Report ---
PROCEDURE: Hip w/Pelvis 1V RT INDICATIONS: RIGHT HIP JOINT PAIN TECHNIQUE: AP pelvis with lateral view(s) of the hip(s). COMPARISON: None. FINDINGS: Bones: No fractures or dislocations. No suspicious bony lesions. Moderate bilateral degenerative hip joint space narrowing. Mild degenerative changes are present within the lower lumbar spine. Soft tissues: No suspicious soft tissue calcifications or masses. IMPRESSION: Moderate bilateral hip arthritic change. Reviewed by: Sadia Hernandez MD on 09/01/2023 3:08 PM PDT Approved by: Sadia Hernandez MD on 09/01/2023 3:08 PM PDT Station ID: [id number]
== END 2023-09-01 13:27 | disposition home or self-care (01) ==
LOC: DI 13:26
PROVIDERS: ATTEND Family Medicine
DX: M16.0 Bilateral primary osteoarthritis of hip (principal)

== ENCOUNTER 2023-10-15 14:25 | Outpatient (CLI) | payer MEDICARE, OTHER ==
--- NOTE | 2023-10-15 16:28 | XRAY Report ---
PROCEDURE: Hip w/Pelvis 1V RT INDICATIONS: RIGHT HIP JOINT PAIN TECHNIQUE: Crosstable lateral of the right hip COMPARISON: Pelvis x-ray 09/01/2023 FINDINGS: Severely limited exam due to body habitus and lack of orthogonal projections. No fracture or dislocat ion. IMPRESSION: Severely limited examination. No fracture or dislocation. Reviewed by: Tommy Clayton MD on 10/15/2023 4:26 PM PDT Approved by: Tommy Clayton MD on 10/15/2023 4:26 PM PDT Station ID: [id number]
== END 2023-10-15 14:26 | disposition home or self-care (01) ==
LOC: DI 14:25
PROVIDERS: ATTEND Physician Assistant Surgical
DX: M25.551 Pain in right hip (principal)

== ENCOUNTER 2023-10-28 08:12 | Outpatient (CLI) | payer MEDICARE, OTHER ==
--- NOTE | 2023-10-28 09:09 | XRAY Report ---
PROCEDURE: Knee 4+V RT INDICATIONS: RIGHT KNEE PAIN TECHNIQUE: 4 views of the knee(s) were acquired. COMPARISON: 08/07/2023 FINDINGS: Bones: No fractures or dislocations. No suspicious bony lesions. Mild tricompartmental osteoarthritis of the right knee, unchanged from prior exam. Soft tissues: Small right knee joint effusion. No suspicious soft tissue calcifications or masses. IMPRESSION: Mild osteoarthritis of right knee. No acute osseous abnormality. Reviewed by: Price Vivas MD on 10/28/2023 9:08 AM PDT Approved by: Price Vivas MD on 10/28/2023 9:08 AM PDT Station ID: [id number]
== END 2023-10-28 08:13 | disposition home or self-care (01) ==
LOC: DI 08:12
PROVIDERS: ATTEND Physician Assistant Surgical
DX: M17.11 Unilateral primary osteoarthritis, right knee (principal)